=== PATIENT | male | born 1990 | race Hispanic/Latino ===

== ENCOUNTER 2021-06-18 21:22 | Emergency (ER) | payer OTHER ==
[~2021-06-18] VITALS: Ht 180.3 cm; Wt 113.6 kg
[2021-06-19 02:20] VITALS: BP 138/70
== END 2021-06-19 02:23 | disposition home or self-care (01) ==
LOC: M ED 21:22
DX: U07.1 COVID-19 (principal)

== ENCOUNTER 2023-02-11 13:48 | Emergency (ER) | payer OTHER ==
[~2023-02-11] VITALS: Ht 182.9 cm; Wt 140.7 kg
[2023-02-11] MEDS ORDERED: ACET-683 PO (15:18)
[2023-02-11] MEDS ORDERED: IBUP200C28 PO (15:18)
[2023-02-11 15:55] LABS: HEMATOCRIT 42.9 % (42.0-52.0); HEMOGLOBIN 14.9 g/dl (13.5-17.5); MEAN CORPUSCULAR HGB CONC 34.7 g/dl (32.0-36.5); MEAN CORPUSCULAR VOLUME 92.3 fl (80.0-96.0); PLATELET COUNT, AUTOMATED 169 10^3/uL (150-450); RED BLOOD COUNT 4.65 10^6/uL (4.30-6.10); WHITE BLOOD COUNT 3.9 10^3/uL (4.0-10.0)
[2023-02-11 16:22] LABS: BLOOD UREA NITROGEN 15 MG/DL (9-23); CALCIUM LEVEL 9.2 MG/DL (8.5-10.1); CARBON DIOXIDE LEVEL 27 MMOL/L (20-31); CHLORIDE LEVEL 107 MMOL/L (98-107); CREATININE FOR GFR 0.85 MG/DL (0.70-1.30); GLOMERULAR FILTRATION RATE > 60.0 (>60); GLUCOSE, FASTING 98 MG/DL (60-100); POTASSIUM SERUM 4.2 MMOL/L (3.5-5.1); SODIUM LEVEL 140 MMOL/L (136-145)
[2023-02-11] MEDS ORDERED: NS 1,000 ML IV ONE (16:25)
[2023-02-11] MEDS ORDERED: KETOROLAC 30 MG/ML 1ML VIAL IV ONE (16:25)
[2023-02-11] MEDS ORDERED: ONDANSETRON 4MG 2ML VIAL IV ONE (16:25)
[2023-02-11 17:11] LABS: THYROID STIMULATING HORMONE 2.206 uIU/ML (0.55-4.78)
[2023-02-11 17:12] LABS: FREE T4 0.88 NG/DL (0.89-1.76)
[2023-02-11 18:49] VITALS: BP 139/91; TEMP 98.3; O2SAT 98
== END 2023-02-11 18:52 | disposition home or self-care (01) ==
LOC: M ED 13:48
DX: R51.9 Headache, unspecified (principal); Z79.1 Long term (current) use of non-steroidal anti-inflammatories (NSAID)
CPT/HCPCS: 70450; 71046; 80048; 83735; 84439; 84443; 85027; 96361; 96374; 99284; J1885; J2405

== ENCOUNTER → 2023-06-17 | Outpatient (CLI) | payer OTHER ==
[~2023-06-17] MED LIST: ACET-683 PO; IBUP200C28 PO
== END ==
LOC: M RAD 07:22
PROVIDERS: ATTEND Psychiatry & Neurology Neurology
DX: G43.719 Chronic migraine without aura, intractable, without status migrainosus (principal); H53.8 Other visual disturbances; R42 Dizziness and giddiness